=== PATIENT | male | born 1965 | race Caucasian/White ===

== ENCOUNTER 2021-04-15 11:19 | Inpatient (IN) ==
[2021-04-15 12:23] LABS: Basophils # (auto) 0.01 K/uL (0-0.2); Basophils % (auto) 0.1 %; Eosinophils # (auto) 0.04 K/uL (0-0.5); Eosinophils % (auto) 0.3 %; Hemoglobin 16.5 g/dL (14.0-18.0); Immature Granulocytes # (auto) 0.06 K/uL (0.00-0.02); Immature Granulocytes % (auto) 0.5 %; Lymphocytes # (auto) 1.34 K/uL (1.2-3.4); Lymphocytes % (auto) 11.5 %; Mean Corpuscular Hemoglobin 30.7 pg (25-34); Mean Corpuscular Hgb Conc 35.1 g/dL (32-36); Mean Corpuscular Volume 87.4 fL (80-100); Mean Platelet Volume 8.9 fL (7.4-10.4); Monocytes # (auto) 0.33 K/uL (0.11-0.59); Monocytes % (auto) 2.8 %; Neutrophils # (auto) 9.87 K/uL (1.4-6.5); Neutrophils % (auto) 84.8 %; Platelet Count 264 K/uL (130-400); RDW Coefficient of Variation 12.5 % (11.5-14.5); RDW Standard Deviation 39.9 fL (36.4-46.3); Red Blood Count 5.38 M/uL (4.7-6.1); White Blood Count 11.65 K/uL (4.8-10.8)
[2021-04-15 12:38] LABS: Appearance Urine Clear (Clear); Bilirubin Urine Negative (Negative); Blood Urine Negative (Negative); Color Urine Yellow; Glucose Urine UA Negative (Negative); Ketones Urine Negative (Negative); Leukocyte Esterase Urine Negative (Negative); Nitrite Urine Negative (Negative); Protein Urine Negative (Negative); Specific Gravity Urine 1.011 (1.000-1.030); Urobilinogen Urine Negative (Negative)
[2021-04-15 12:40] LABS: Alanine Aminotransferase 60 (12-78); Albumin Level 3.6 gm/dl (3.4-5.0); Aspartate Aminotransferase 29 U/L (15-37); BUN Creatinine Ratio 20.6 (10-20); Blood Urea Nitrogen 17 mg/dl (7-18); Calcium 9.1 mg/dl (8.5-10.1); Carbon Dioxide 26 mmol/L (21-32); Chloride 104 mmol/L (98-107); Est GFR (African American) 116.2 ml/min; Est GFR (Non-African American) 100.3 ml/min; Glucose 111 mg/dl (70-99); Potassium 4.1 mmol/L (3.5-5.1); Sodium 136 mmol/L (136-145)
[2021-04-15 12:42] LABS: Alkaline Phosphatase 62 U/L (45-117); Bilirubin,Total 0.9 mg/dl (0.2-1); Globulin 3.7 gm/dl (2.5-4.0); Total Protein 7.3 gm/dl (6.4-8.2)
[2021-04-15] MEDS ORDERED: HYDROmorphone INJ 1 MG/ML SYRINGE IV STA (12:51)
--- NOTE | 2021-04-15 12:55 | Emergency Department Note ---
Impression & Plan Lumbar radiculopathy, Bilateral leg weakness, Bilateral leg numbness ED Provider Note CHIEF COMPLAINT: Low back pain, leg weakness and numbness HISTORY OF PRESENT ILLNESS: This 55-year-old male patient presents to the emergency department via EMS complaining of pain in the low back which began about 2 weeks ago. The patient notes a history of chronic back problems since having a lumbar laminectomy several years ago, but he feels that he aggravated his back about 2 weeks ago after splitting some firewood. This is the patient's fourth visit to the emergency department for his back pain. He states over the past week he has been developing worsening pain with numbness and weakness in both legs, and for the past few days he has not been able to walk because of this. He has been seen by Dr. Griffin who did perform an MRI of his lumbar spine. The patient states that he was directed to come to the emergency department today by Dr. Griffin's office and Dr. Griffin will see him today. The patient is unable to get into a comfortable position. Patient notes the pain as severe, radiating down both legs from the lower back, and rates the pain 10/10. The patient did receive 8 mg of IV morphine from EMS in route, the patient states at this point this was about 2 hours ago. The patient has been taking oxycodone without relief of the pain. The patient denies any loss of control of their bowel or bladder functions, but does note that he has been somewhat constipated since taking narcotics. No nausea or vomiting or abdominal pain. No chest pain or shortness of breath. No dysuria or increased urinary frequency. REVIEW OF SYSTEMS: A complete 10 point review of systems was reviewed with the patient with pertinent positives and negatives as per history of present illness. All else were negative. ALLERGIES: No known allergies PMH: Anxiety, obesity, sleep apnea, chronic back pain, history of lumbar laminectomy, bilateral knee arthroscopy, tonsillectomy and adenoidectomy SOCIAL HISTORY: Lives at home, he denies tobacco use PHYSICAL EXAM: VITALS: Vitals are noted on the nurse's note and reviewed by myself. Vital signs stable. GENERAL: Pleasant and cooperative, in no acute distress, but appears significantly uncomfortable from pain and is mildly diaphoretic. SKIN: The skin was without rashes, erythema, edema, or bruising. Capillary refill less than 2 seconds. NECK: Supple without nuchal rigidity. No cervical spine tenderness. No paraspinous muscle tenderness. HEART: Regular rate and rhythm without murmurs gallops or rubs. LUNGS: Clear to auscultation bilaterally without wheezes, rales or rhonchi. ABDOMEN: Positive bowel sounds x 4. Normal tympanic percussion. Soft, nontender, without masses or organomegaly. Portillo sign negative. MUSCULOSKELETAL: No muscle atrophy, erythema, or edema noted of the back. There is diffuse tenderness over the lumbar spinous processes. There is diffuse tenderness over the paraspinous muscles of the lumbar region bilaterally. There is no tenderness over the thoracic spine or tenderness of the thoracic paraspinous muscles. There are no obvious muscle spasms present. The patient is slow to move around, and is constantly changing position from sitting and laying on his side and does not seem to be able to get comfortable. Positive straight leg raise test bilaterally NEURO: Patient was alert and oriented to person place and time. Decreased sensation to light touch in both lower extremities, more significant in the right compared to the left. Decreased strength in the right lower extremity on exam with 4/5 hip and knee flexion and 3/5 dorsiflexion. 5/5 strength in the left lower extremity. The patient is unable to stand due to bilateral leg weakness. Dorsalis pedis pulse 2+ bilaterally. ED COURSE AND MEDICAL DECISION MAKING: CC: Patient presenting with complaint of low back pain, leg weakness and numbness DIFFERENTIAL DIAGNOSIS: Includes, but not limited to musculoskeletal, disc herniation, fracture, metastatic disease, cord compression, discitis, sciatica, cauda equina, infection, among others. INTERPRETATION OF LABS: Mild leukocytosis, no anemia, normal platelets, no significant electrolyte abnormalities, normal renal function, normal liver enzymes. UA negative. SARS-CoV-2 RNA test negative. IMAGING: MRI of the lumbar spine without contrast performed on 04/06/2021 IMPRESSION: 1. Significant multilevel central canal and neural foraminal stenosis as de scribed due to a combination of spondylosis, ligamentous and facet hypertrophy. 2. Mild degenerative appearing anterolisthesis of L4 over L5. 3. L3-L5 laminectomy. MEDICATION RECONCILIATION: I attest that I have personally reviewed the patient's current medication list. INITIAL VITAL SIGNS REVIEW: I reviewed the patient's initial vital signs and interpret them as follows: T: Afebrile; BP: Normotensive; HR: Mildly tachycardic; RR: Within normal limits; Pulse Ox: Within normal limits on room air. MDM SUMMARY: Patient was evaluated at bedside, history and physical exam performed. Patient is alert and oriented, appears significantly uncomfortable from pain, unable to find a comfortable position. The patient is diaphoretic and complaining of 10/10 pain. Patient is noted to have decreased sensation throughout the lower extremities, right greater than left as well as some weakness in the right lower extremities right greater than left. He is unable to walk or even put full weight on his legs due to weakness. The patient received 8 mg IV morphine prior to arrival from EMS. He was given additional pain management with 1 mg IV Dilaudid. The patient did have a recent MRI of the lumbar spine which was ordered by Dr. Griffin, the results of this were requested and are as above. The patient does state that Dr. Griffin's office told him to come to the ER for evaluation. I did page for Dr. Griffin and waiting on his call. The patient had minimal relief after the Dilaudid, he was additionally given 30 mg IV Toradol. I did speak on the phone with Dr. Griffin, who feels that the patient warrants urgent surgery and plans to admit the patient for surgery tomorrow. The patient was reassessed again and continues to be significantly in pain. He states the Toradol did not help at all. I did discuss with the patient and his that he would be admitted and Dr. Griffin plans to do surgery tomorrow. The patient was agreeable to this. A COVID-19 test was ordered per protocol. Patient was given an additional dose of 0.5 mg IV Dilaudid pending orders from the inpatient team. The patient was alert and stable at the time of admission. The patient was discussed with Dr. Sinclair, ED attending, who agrees with my assessment, plan, and disposition. The chart was completed utilizing [employer] Speech voice recognition software. Grammatical errors, random word insertions, pronoun errors, and incomplete sentences are an occasional consequence of this system due to software limita tions, ambient noise, and hardware issues. Any formal questions or concerns about the content, text, or information contained within the body of this dictation should be directly addressed to the nurse practitioner for clarification. Past Med/Surg History Medical History Anxiety Chronic back pain with radiculopathy to LE, R>L Obesity (BMI 30-39.9) Sleep apnea CPAP Surgical History H/O colonoscopy History of adenoidectomy History of arthroscopy BILATERAL KNEES History of laminectomy LUMBAR History of tonsillectomy Family History Father Family history of diabetes mellitus Social History Smoking Status: Never smoker Second Hand Exposure: No; Hx Alcohol Use: No Hx Substance Use: No Preferred Language: Syriac Communication Ability: Effective [place] Required: No Beliefs That Will Affect Care: None Current Living Situation: Family Feels Safe at Home: Yes Assistive Devices: Glasses Allergies Allergies Allergy/AdvReac Type Severity Reaction Status Date / Time No Known Allergies Allergy Verified 04/15/21 16:52 Home Meds Home Medications Medication Instructions Recorded Confirmed acetaminophen 500 mg tablet 1,000 mg PO DAILY PRN 01/21/18 03/31/21 (Tylenol Extra Strength) fluticasone propionate 50 2 spray INTRANASAL DAILY PRN 01/21/18 03/31/21 mcg/actuation nasal spray,suspension (Flonase Allergy Relief) trazodone 50 mg tablet 50 mg PO HS 01/21/18 03/31/21 meclizine 25 mg tablet 25 mg PO DAILY PRN 02/23/18 03/31/21 cyclobenzaprine 10 mg tablet 10 mg PO BID 03/31/21 03/31/21 triamterene 37.5 1 cap PO DAILY 04/15/21 04/15/21 mg-hydrochlorothiazide 25 mg capsule Previous Rx's Medication Instructions Recorded methylprednisolone 4 mg tablets in See Rx Instructions .ROUTE 03/31/21 a dose pack .COMPLEX #21 ea oxycodone 5 mg tablet (Roxicodone) 5 mg PO Q8H PRN #21 tab 03/31/21 Results & Data (ED) Vital Signs Vital Signs - 24 hr 04/15/21 11:30 04/15/21 13:09 04/15/21 13:12 Temperature 36.8 C Temperature Source Skin Pulse Rate 100 H 108 H Pulse Rate [Apical] 104 H Pulse Rhythm [Apical] Pulse Strength [Apical] Respiratory Rate 18 24 24 Respiratory Effort / Characteristics Respiratory Depth Respiratory Pattern Blood Pressure 139/79 Blood Pressure [Right Arm] 129/87 Blood Pressure Mean 99 Blood Pressure Mean [Right Arm] 101 Blood Pressure Position [Right Arm] Pulse Oximetry 96 95 95 Oxygen Delivery Method Room Air Room Air Sepsis Recent Fever Within 48 Hours No Sepsis New/Unexplained Change in Mental Status No Sepsis Action Taken by Nursing No Action Required 04/15/21 15:26 Temperature Temperature Source Pulse Rate Pulse Rate [Apical] 118 H Pulse Rhythm [Apical] Regular Pulse Strength [Apical] Normal Respiratory Rate 18 Respiratory Effort / Characteristics Non-Labored Spontaneous Respiratory Depth Normal Respiratory Pattern Regular Blood Pressure Blood Pressure [Right Arm] 142/80 H Blood Pressure Mean Blood Pressure Mean [Right Arm] 100 Blood Pressure Position [Right Arm] Sitting Pulse Oximetry 95 Oxygen Delivery Method Room Air Sepsis Recent Fever Within 48 Hours Sepsis New/Unexplained Change in Mental Status Sepsis Action Taken by Nursing Laboratory Data Result diagrams: 04/15/21 12:13 04/15/21 12:13 Lab Results 04/15/21 04/15/21 04/15/21 Range/Units 12:13 12:13 12:20 WBC 11.65 H (4.8-10.8) K/uL RBC 5.38 (4.7-6.1) M/uL Hgb 16.5 (14.0-18.0) g/dL Hct 47.0 (42-52) % MCV 87.4 (80-100) fL MCH 30.7 (25-34) pg MCHC 35.1 (32-36) g/dL RDW Std Deviation 39.9 (36.4-46.3) fL RDW Coeff of Alex 12.5 (11.5-14.5) % Plt Count 264 (130-400) K/uL MPV 8.9 (7.4-10.4) fL Immature Gran % (Auto) 0.5 % Neut % (Auto) 84.8 % Lymph % (Auto) 11.5 % [place] % (Auto) 2.8 % Eos % (Auto) 0.3 % Baso % (Auto) 0.1 % Neut # (Auto) 9.87 H (1.4-6.5) K/uL Lymph # (Auto) 1.34 (1.2-3.4) K/uL [place] # (Auto) 0.33 (0.11-0.59) K/uL Eos # (Auto) 0.04 (0-0.5) K/uL Baso # (Auto) 0.01 (0-0.2) K/uL Immature Gran # (Auto) 0.06 H (0.00-0.02) K/uL Sodium 136 (136-145) mmol/L Potassium 4.1 (3.5-5.1) mmol/L Chloride 104 (98-107) mmol/L Carbon Dioxide 26 (21-32) mmol/L Anion Gap 6.0 (3-11) BUN 17 (7-18) mg/dl Creatinine 0.82 (0.6-1.4) mg/dl Est Cr Clr Drug Dosing Not Reportable Est GFR ( Amer) 116.2 ml/min Est GFR (Non-Af Amer) 100.3 ml/min BUN/Creatinine Ratio 20.6 H (10-20) Glucose 111 H (70-99) mg/dl Calcium 9.1 (8.5-10.1) mg/dl Total Bilirubin 0.9 (0.2-1) mg/dl AST 29 (15-37) U/L ALT 60 (12-78) Alkaline Phosphatase 62 (45-117) U/L Total Protein 7.3 (6.4-8.2) gm/dl Albumin 3.6 (3.4-5.0) gm/dl Globulin 3.7 (2.5-4.0) gm/dl Albumin/Globulin Ratio 1.0 (0.9-2) Urine Color Yellow Urine Appearance Clear (Clear) Urine pH 6.0 (4.5-7.5) Ur Specific [place] 1.011 (1.000-1.030) Urine Protein Negative (Negative) Urine Glucose (UA) Negative (Negative) Urine Ketones Negative (Negative) Urine Blood Negative (Negative) Urine Nitrite Negative (Negative) Urine Bilirubin Negative (Negative) Urine Urobilinogen Negative (Negative) Ur Leukocyte Esterase Negative (Negative) SARS-CoV-2, RNA, NAAT (NEGATIVE) 04/15/21 Range/Units 15:15 WBC (4.8-10.8) K/uL RBC (4.7-6.1) M/uL Hgb (14.0-18.0) g/dL Hct (42-52) % MCV (80-100) fL MCH (25-34) pg MCHC (32-36) g/dL RDW Std Deviation (36.4-46.3) fL RDW Coeff of Alex (11.5-14.5) % Plt Count (130-400) K/uL MPV (7.4-10.4) fL Immature Gran % (Auto) % Neut % (Auto) % Lymph % (Auto) % [place] % (Auto) % Eos % (Auto) % Baso % (Auto) % Neut # (Auto) (1.4-6.5) K/uL Lymph # (Auto) (1.2-3.4) K/uL [place] # (Auto) (0.11-0.59) K/uL Eos # (Auto) (0-0.5) K/uL Baso # (Auto) (0-0.2) K/uL Immature Gran # (Auto) (0.00-0.02) K/uL Sodium (136-145) mmol/L Potassium (3.5-5.1) mmol/L Chloride (98-107) mmol/L Carbon Dioxide (21-32) mmol/L Anion Gap (3-11) BUN (7-18) mg/dl Creatinine (0.6-1.4) mg/dl Est Cr Clr Drug Dosing Est GFR ( Amer) ml/min Est GFR (Non-Af Amer) ml/min BUN/Creatinine Ratio (10-20) Glucose (70-99) mg/dl Calcium (8.5-10.1) mg/dl Total Bilirubin (0.2-1) mg/dl AST (15-37) U/L ALT (12-78) Alkaline Phosphatase (45-117) U/L Total Protein (6.4-8.2) gm/dl Albumin (3.4-5.0) gm/dl Globulin (2.5-4.0) gm/dl Albumin/Globulin Ratio (0.9-2) Urine Color Urine Appearance (Clear) Urine pH (4.5-7.5) Ur Specific [place] (1.000-1.030) Urine Protein (Negative) Urine Glucose (UA) (Negative) Urine Ketones (Negative) Urine Blood (Negative) Urine Nitrite (Negative) Urine Bilirubin (Negative) Urine Urobilinogen (Negative) Ur Leukocyte Esterase (Negative) SARS-CoV-2, RNA, NAAT NEGATIVE (NEGATIVE) Administered Medications Discontinued Medications Hydromorphone HCl (Hydromorphone Inj 1 Mg/Ml Syringe) 1 mg IV NOW STA Stop: 04/15/21 12:52 Last Admin: 04/15/21 12:59 Dose: 1 mg Documented by: [id number] Hydromorphone HCl (Hydromorphone Inj 0.5 Mg/0.5 Ml Syr) 0.5 mg IV NOW STA Stop: 04/15/21 15:16 Last Admin: 04/15/21 15:21 Dose: 0.5 mg Documented by: [id number] Ketorolac Tromethamine (Ketorolac 30 Mg/Ml Vial) 30 mg IV NOW STA Stop: 04/15/21 13:21 Last Admin: 04/15/21 13:23 Dose: 30 mg Documented by: [id number] Discharge Plan Visit Data Chief Complaint: Back Injury/Pain Stated Complaint: chronic ED Provider: Herber Sinclair ED Midlevel Provider: Chantel Bella Discharge Problem: Lumbar radiculopathy, Bilateral leg weakness, Bilateral leg numbness Patient Disposition: Admitted As Inpatient Condition: Good Forms Stand Alone Forms: [facility], [facility] Emergency Department, Important Visit Information Prescriptions Prescriptions: No Action trazodone 50 mg Tablet 50 mg PO HS RF: 0 acetaminophen [Tylenol Extra Strength] 500 mg Tablet 1,000 mg PO DAILY PRN (Reason: Pain) RF: 0 fluticasone propionate [Flonase Allergy Relief] 50 mcg/actuation [place],S uspension 2 spray INTRANASAL DAILY PRN (Reason: Allergy Symptoms) RF: 0 meclizine 25 mg Tablet 25 mg PO DAILY PRN (Reason: Dizziness) RF: 0 cyclobenzaprine 10 mg tablet 10 mg PO BID RF: 0 oxycodone [Roxicodone] 5 mg tablet 5 mg PO Q8H PRN (Reason: pain) Qty: 21 RF: 0 methylprednisolone 4 mg tablets,dose pack See Rx Instructions .ROUTE .COMPLEX Qty: 21 RF: 0 triamterene-hydrochlorothiazid 37.5-25 mg capsule 1 cap PO DAILY RF: 0 Referrals Referrals: Oja,Octaviano, PA-C [Primary Care Provider] -
[2021-04-15] MEDS ORDERED: KETOROLAC 30 MG/ML VIAL IV STA (13:20)
[2021-04-15] MEDS ORDERED: HYDROmorphone INJ 0.5 MG/0.5 ML SYR IV STA (15:15)
[2021-04-15] MEDS ORDERED: MAGNESIUM HYDROXIDE SUSP 30 ML UDC PO PRN (18:56)
[2021-04-15] MEDS ORDERED: diphenhydrAMINE Capsule 25 MG CAP PO PRN (18:56)
[2021-04-15] MEDS ORDERED: METOCLOPRAMIDE HCL INJ 5 MG/ML 2 ML VIAL IV PRN (18:56)
[2021-04-15] MEDS ORDERED: LORazepam 0.5 MG/1 ML VIAL IV PRN (18:56)
[2021-04-15] MEDS ORDERED: ACETAMINOPHEN 500 MG TAB PO PRN (18:56)
[2021-04-15] MEDS ORDERED: ONDANSETRON INJ 2 MG/ML 2 ML VIAL IV PRN (18:56)
[2021-04-15] MEDS ORDERED: HYDROmorphone INJ 0.5 MG/0.5 ML SYR IV PRN (18:56)
[2021-04-15] MEDS ORDERED: ACETAMINOPHEN 1,000 MG/100 ML VIAL IV PRN (18:56)
[2021-04-15] MEDS ORDERED: ONDANSETRON 4 MG OD TAB PO PRN (18:56)
[2021-04-15] MEDS ORDERED: ALUMINUM/MAGNESIUM SUSP 30 ML UDC PO PRN (18:56)
[2021-04-15] MEDS ORDERED: PROMETHAZINE HCL 12.5 MG in SODIUM CHLORIDE 0.9% 50 ML IV PRN (18:56)
[2021-04-15] MEDS ORDERED: hydrOXYzine HCl 25 MG TAB PO PRN (18:56)
[2021-04-15] MEDS ORDERED: NALOXONE HCL 0.4 MG/1 ML VIAL/CARP IV PRN (18:56)
[2021-04-15] MEDS ORDERED: LORazepam 0.5 MG TAB PO PRN (18:56)
[2021-04-15] MEDS: HYDROmorphone INJ 1 MG/ML SYRINGE IV PRN ×2 (19:59→23:29)
[2021-04-15] MEDS: LACTATED RINGER'S 1,000 ML IV SCH (20:03)
[2021-04-15] MEDS: oxyCODONE HCL IR 5 MG TAB (IMMEDIATE RELEASE) PO PRN (21:55)
[2021-04-15] MEDS: traZODone HCL 50 MG TAB PO SCH (21:56)
[2021-04-16] MEDS ORDERED: GLUCOSE 10 TABS/TUBE PO PRN (00:15)
[2021-04-16] MEDS ORDERED: CARBOHYDRATES FOR HYPOGLYCEMIA PO PRN (00:15)
[2021-04-16] MEDS ORDERED: DEXTROSE 50% 50 ML SYRINGE IV PRN (00:15)
[2021-04-16] MEDS ORDERED: GLUCOSE 40% GEL 15 GM TUBE PO PRN (00:15)
[2021-04-16] MEDS ORDERED: GLUCAGON FOR INJ 1 MG VIAL IM PRN (00:15)
[2021-04-16] MEDS: INSULIN ASPART PER UNIT SC SCH ×5 (01:29→21:25)
--- NOTE | 2021-04-16 02:21 | History and Physical Report ---
DATE OF ADMISSION: 04/15/2021. CHIEF COMPLAINT: Back pain. HISTORY OF PRESENT ILLNESS: This is a 55-year-old male with past medical history significant for prediabetes, obstructive sleep apnea, mild persistent asthma, obesity, history of rectal bleeding, history of adjustment disorder, history of lumbar laminectomy was having back pain for some time, but the last 2 weeks it has become more severe, having ambulatory dysfunction. Outpatient MRI was done and it was decided for procedure, so he was admitted. We are consulted for medical management. Currently, resting comfortably. Has complaints of back pain. Denies any other complaints. No headache, no blurred visions, no earache, no runny nose, no sore throat, no cough, no chest pain, no shortness of breath, no nausea, no abdominal pain. Somewhat constipated because of pain medications. Normal bladder movements. ALLERGIES: No known drug allergies. PAST MEDICAL HISTORY: As mentioned above. PAST SURGICAL HISTORY: Colonoscopy, right knee repair, left knee repair, back surgeries, revision of palate. MEDICATIONS: The patient is on Tylenol Extra Strength 1000 mg p.o. daily p.r.n., cyclobenzaprine 10 mg p.o. b.i.d., Flonase 2 sprays intranasal daily p.r.n., meclizine 25 mg p.o. daily p.r.n., oxycodone 5 mg p.o. 8 hours p.r.n., trazodone 50 mg p.o. at bedtime, triamterene/hydrochlorothiazide 1 capsule p.o. daily. FAMILY HISTORY: Significant for father had heart disorder, hypertension, thyroid disorder; mother has fibromyalgia, Alzheimer disease; son has allergies. SOCIAL HISTORY: , no smoking, no alcohol, no drug use. REVIEW OF SYSTEMS: As per HPI. Rest of the review of systems is negative. PHYSICAL EXAMINATION: GENERAL: The patient is obese, not in acute distress. VITAL SIGNS: Temperature 36.6, pulse 76, respiratory rate 18, blood pressure 138/76, oxygen 92% on room air. HEENT: Atraumatic. No facial droop. Speech is clear. NECK: No JVD. No neck masses. CARDIOVASCULAR: S1 and S2 heard. Regular rate and rhythm. No murmur, no gallop. RESPIRATORY SYSTEM: Normal AP diameter. No accessory muscle use. No wheezing, no crackles. ABDOMEN: Soft, bowel sounds present, nontender, no distention. CENTRAL NERVOUS SYSTEM: Cranial nerves II through XII are grossly intact. EXTREMITIES: Moves extremities. No edema, no erythema seen. LABORATORY DATA: WBC 11.6, hemoglobin 16.5, hematocrit 47, platelets 263. Sodium 136, potassium 4.1, chloride 104, bicarbonate 26, BUN 17, creatinine 0.8, serum glucose 111, calcium 9.1, total bilirubin 0.9, AST 29, ALT 60, alkaline phosphatase 62. Urinalysis negative. SARS-CoV-2 negative. ASSESSMENT AND PLAN: This is a 55-year-old male who was admitted for severe back pain, possible procedure in the a.m. 1. Severe back pain: Management as per orthopedics. Pain control. If procedure required, the patient will be at acceptable risk to proceed with procedure if pre op chest x-ray and EKG are ok. 2. Obstructive sleep apnea: On CPAP at bedtime. 3. Prediabetes: Will monitor the blood sugars. 4. Deep venous thrombosis prophylaxis and disposition as per orthopedics. Job ID: [id number] [facility]
[2021-04-16] MEDS: HYDROmorphone INJ 1 MG/ML SYRINGE IV PRN ×2 (03:22→06:22)
[2021-04-16] MEDS: oxyCODONE HCL IR 5 MG TAB (IMMEDIATE RELEASE) PO PRN (05:41)
[2021-04-16] MEDS ORDERED: ceFAZolin 2000MG 2,000 MG/15 ML SYR IV SCH (06:00)
[2021-04-16 06:50] LABS: Basophils # (auto) 0.01 K/uL (0-0.2); Basophils % (auto) 0.1 %; Eosinophils # (auto) 0.27 K/uL (0-0.5); Eosinophils % (auto) 2.2 %; Hematocrit (blood only) 47.8 % (42-52); Hemoglobin 16.6 g/dL (14.0-18.0); Immature Granulocytes # (auto) 0.09 K/uL (0.00-0.02); Immature Granulocytes % (auto) 0.7 %; Lymphocytes # (auto) 2.32 K/uL (1.2-3.4); Lymphocytes % (auto) 18.9 %; Mean Corpuscular Hemoglobin 30.6 pg (25-34); Mean Corpuscular Hgb Conc 34.7 g/dL (32-36); Mean Platelet Volume 8.9 fL (7.4-10.4); Monocytes # (auto) 1.74 K/uL (0.11-0.59); Monocytes % (auto) 14.2 %; Neutrophils # (auto) 7.86 K/uL (1.4-6.5); Neutrophils % (auto) 63.9 %; Platelet Count 263 K/uL (130-400); RDW Coefficient of Variation 12.6 % (11.5-14.5); RDW Standard Deviation 40.3 fL (36.4-46.3); Red Blood Count 5.43 M/uL (4.7-6.1); White Blood Count 12.29 K/uL (4.8-10.8)
[2021-04-16 07:28] LABS: BUN Creatinine Ratio 24.6 (10-20); Calcium 9.3 mg/dl (8.5-10.1); Creatinine Clr Calc Pharmacy 134.8 ml/min; Est GFR (African American) 113.4 ml/min; Est GFR (Non-African American) 97.8 ml/min; Magnesium 2.4 mg/dl (1.8-2.4); Potassium 3.8 mmol/L (3.5-5.1)
--- NOTE | 2021-04-16 07:56 | Anesthesiology Consultation ---
Date of Service April 16, 2021 I spoke with the nurse on the floor about obtaining an updated EKG on the patient. She stated that they attempted to obtain an EKG multiple times but that the patient shakes too much for an acceptable printout. Assessment & Plan (1) Encounter for pre-operative examination: Chart Review Chart Review: Acceptable Risk for Surgery and Patient NOT seen in Pre Admission Testing Consults Requested none History Surgery Operation Date: 04/16/21 09:40 Proposed Procedures p L2-S1 Lumbar Decompression Fusion - Juan Griffin DO Height/Weight Height: 6 ft 1 in Weight: 125.7 kg Allergies Allergy/AdvReac Type Severity Reaction Status Date / Time No Known Allergies Allergy Verified 04/15/21 16:52 Medications Home Medications Medication Instructions Recorded Confirmed Last Taken acetaminophen 500 mg tablet 1,000 mg PO DAILY PRN 01/21/18 04/15/21 02/20/18 (Tylenol Extra Strength) fluticasone propionate 50 2 spray INTRANASAL DAILY PRN 01/21/18 04/15/21 3 Weeks Ago mcg/actuation nasal ~02/02/18 spray,suspension (Flonase Allergy Relief) trazodone 50 mg tablet 50 mg PO HS 01/21/18 04/15/21 02/21/18 21:00 meclizine 25 mg tablet 25 mg PO DAILY PRN 02/23/18 04/15/21 3 Weeks Ago ~02/02/18 cyclobenzaprine 10 mg tablet 10 mg PO BID 03/31/21 04/15/21 04/15/21 07:00 methylprednisolone 4 mg tablets in See Rx Instructions .ROUTE 03/31/21 04/15/21 04/15/21 07:00 a dose pack .COMPLEX #21 ea oxycodone 5 mg tablet (Roxicodone) 5 mg PO Q8H PRN #21 tab 03/31/21 04/15/21 08:00 triamterene 37.5 1 cap PO DAILY 04/15/21 04/15/21 Unknown mg-hydrochlorothiazide 25 mg capsule Active Medications Generic Name Dose Route Start Last Admin Trade Name Freq PRN Reason Stop Dose Admin Hydromorphone HCl 1 mg 04/15/21 18:56 04/16/21 06:22 Hydromorphone Inj 1 Mg/Ml Syringe IV 04/29/21 18:55 1 mg Q3H PRN Administration severe pain (scale 7-10) Lactated Ringer's 1,000 mls @ 75 mls/hr 04/15/21 18:56 04/15/21 20:03 Lr IV 05/15/21 18:55 75 mls/hr .[id number] MICHELLE Administration Lorazepam 0.5 mg in 1 mls @ 1 mls/min 04/15/21 18:56 04/16/21 02:10 Ativan IV 05/15/21 18:55 1 mls/min Q8H PRN Administration Sedation/Anxiety Insulin Aspart 0 units 04/16/21 00:15 04/16/21 05:46 Insulin Aspart Per Unit SC 05/16/21 00:14 Not Given Q6 MICHELLE Oxycodone HCl 5 - 10 mg 04/15/21 18:56 04/16/21 05:41 Oxycodone Hcl Ir 5 Mg Tab (Immediate Release) PO 04/29/21 18:55 10 mg Q4H PRN Administration mod to severe pain Trazodone HCl 50 mg 04/15/21 21:00 04/15/21 21:56 Trazodone Hcl 50 Mg Tab PO 05/15/21 20:59 50 mg HS MICHELLE Administration NPO Date Last Intake of Fluids: 04/15/21 Time Last Intake of Fluids: 23:59 Date Last Intake of Solids: 04/15/21 Time Last Intake of Solids: 23:59 Past Medical History Medical History Anxiety Chronic back pain with radiculopathy to LE, R>L Obesity (BMI 30-39.9) Sleep apnea CPAP Past Family History Family History Father Family history of diabetes mellitus Past Surgical History Surgical History H/O cervical spine surgery glidescope #4 used H/O colonoscopy History of adenoidectomy History of arthroscopy BILATERAL KNEES History of laminectomy LUMBAR History of tonsillectomy Social History Smoking Status: Never smoker Hx Alcohol Use: No Hx Substance Use: No substance use type: does not use Physical Exam Vital Signs Last Vital Signs Temp 36.5 C 04/16/21 07:00 Pulse 90 12/15/21 07:00 Resp 18 04/16/21 07:00 BP 154/94 H 04/16/21 07:00 Pulse Ox 96 04/16/21 07:00 Testing Laboratory Results 04/16/21 06:33 04/16/21 06:33 Urine Color Yellow 04/15/21 12:20 Urine Appearance Clear (Clear) 04/15/21 12:20 Urine pH 6.0 (4.5-7.5) 04/15/21 12:20 Ur Specific [place] 1.011 (1.000-1.030) 04/15/21 12:20 Urine Protein Negative (Negative) 04/15/21 12:20 Urine Glucose (UA) Negative (Negative) 04/15/21 12:20 Urine Ketones Negative (Negative) 04/15/21 12:20 Urine Nitrite Negative (Negative) 04/15/21 12:20 Ur Leukocyte Esterase Negative (Negative) 04/15/21 12:20 04/16/21 04/16/21 05:41 01:14 POC Glucose 90 99
--- NOTE | 2021-04-16 07:59 | History & Physical Report ---
Date of Service April 16, 2021 Assessment & Plan (1) Neurogenic claudication due to lumbar spinal stenosis: Plan: Assessment severe lumbar spinal stenosis with herniated was pulposis spondylolisthesis and advanced neurologic deficit. Plan MRI lumbar spine performed at [facility] dated April 06, 2021 demonstrates evidence of severe neuroforaminal disease with evidence of foraminal disc herniation L2-L3 L3-L4 on the left. There is anterior listhesis L4-5. There is evidence of lumbar decompression centrally L3-L4 L4-L5 L5-S1. There is severe advanced subarticular disease. In light of the patient's steady decline obvious neuro deficit and inability ambulate him recommending emergent multilevel revision decompression and fusion L2-L3 L3-L4 L4-L5 L5-S1. Admission and Anticipated Discharge Date Admission Date: April 15, 2021 History of Present Illness Chief Complaint: Back bilateral leg pain and weakness Primary Care Provider: Octaviano Malone PA-C This is a 55-year-old male who presents with marked clinical status over the past several weeks. This is his third emergency room visit. He is noted a steady decline in ability to ambulate with pain rating in the bilateral buttocks posterior anterior thighs below his knees. He is unable to stand for any length of time or ambulate. He does have a history of previous multilevel lumbar decompression without fusion. Allergies Allergy/AdvReac Type Severity Reaction Status Date / Time No Known Allergies Allergy Verified 04/15/21 16:52 Home Medications Medication Instructions Recorded Confirmed Type acetaminophen 500 mg tablet 1,000 mg PO DAILY PRN 01/21/18 04/15/21 History (Tylenol Extra Strength) fluticasone propionate 50 2 spray INTRANASAL DAILY PRN 01/21/18 04/15/21 History mcg/actuation nasal spray,suspension (Flonase Allergy Relief) trazodone 50 mg tablet 50 mg PO HS 01/21/18 04/15/21 History meclizine 25 mg tablet 25 mg PO DAILY PRN 02/23/18 04/15/21 History cyclobenzaprine 10 mg tablet 10 mg PO BID 03/31/21 04/15/21 History methylprednisolone 4 mg tablets in See Rx Instructions .ROUTE 03/31/21 04/15/21 Rx a dose pack .COMPLEX #21 ea oxycodone 5 mg tablet (Roxicodone) 5 mg PO Q8H PRN #21 tab 03/31/21 04/15/21 Rx triamterene 37.5 1 cap PO DAILY 04/15/21 04/15/21 History mg-hydrochlorothiazide 25 mg capsule Past Med/Surg History Medical History Anxiety Chronic back pain with radiculopathy to LE, R>L Obesity (BMI 30-39.9) Sleep apnea CPAP Surgical History (Updated 04/16/21 @ 07:55 by Liu Mayer MD) H/O cervical spine surgery glidescope #4 used H/O colonoscopy History of adenoidectomy History of arthroscopy BILATERAL KNEES History of laminectomy LUMBAR History of tonsillectomy Family History Father Family history of diabetes mellitus Social History Smoking Status: Never smoker Second Hand Exposure: No; Hx Alcohol Use: No Hx Substance Use: No Preferred Language: Greek Communication Ability: Effective Rn Otolaryngology Required: No Beliefs That Will Affect Care: None Current Living Situation: Family Other Information That Helps Us Care for You: No Feels Safe at Home: Yes Safety Concerns: Feels Safe At This Time Assistive Devices: Cane, Glasses and Walker Physical Exam Physical Exam: Patient is in obvious distress. He exhibits 3/5 quadriceps on the left 4 5 on the right. Dorsiflexion is a 4/5 bilaterally. Sensory is diminished. Deep tendon reflexes absent. There is severe tension signs with straight leg raising. Results & Data ([facility]) Vital Signs (Past 12 Hours) Vital Signs Temp Pulse Resp BP Pulse Ox Pulse Ox 04/16/21 07:00 36.5 C 90 18 154/94 H 96 04/15/21 23:18 36.6 C 76 18 138/76 92 04/15/21 20:40 36.8 C 87 18 159/81 H 93 04/15/21 20:35 36.8 C 87 16 159/81 H 93 93 Code Status & VTE Plan VTE Prophylaxis Plan VTE Prophylaxis will be ordered: Yes
[2021-04-16] MEDS ORDERED: MIDAZOLAM HCL 1 MG/ML 2ML VIAL ONE (08:00)
[2021-04-16] MEDS ORDERED: fentaNYL citrate 100 MCG/2 ML VIAL ONE (08:00)
--- NOTE | 2021-04-16 08:18 | XRay Report ---
SINGLE VIEW CHEST CLINICAL HISTORY: Preoperative examination FINDINGS: An AP, portable, upright chest radiograph is compared to study dated 01/21/2018. The patient 's head partially obscures the apices. The cardiomediastinal silhouette is unremarkable. There is mil d bibasilar atelectasis. The lungs and pleural spaces are otherwise clear. No pneumothorax is seen. T he bony thorax is grossly intact. Degenerative change is noted in the shoulders. IMPRESSION: No active disease in the chest. ACT 112: Negative or not required by law. Electronically signed by: Julian Elias M.D. 04/16/2021 8:17 AM
[2021-04-16] MEDS ORDERED: BUPIVACAINE 0.5 % 5 MG/1 ML MPF 30ML VIAL ONE (08:22)
[2021-04-16] MEDS ORDERED: EPINEPHrine INJ 1 MG/ML AMP ONE (08:22)
[2021-04-16 08:29] LABS: Estimated Average Glucose 120 mg/dl; Hemoglobin A1C 5.8 % (4.5-5.6)
[2021-04-16] MEDS ORDERED: ROCURONIUM BROMIDE 10 MG/ML 5 ML VIAL IV ONE (08:41)
[2021-04-16] MEDS ORDERED: DEXAMETHASONE SOD INJ 4 MG/ML VIAL ONE ×2 (08:41→12:25)
[2021-04-16] MEDS ORDERED: LIDOCAINE 2% 2 ML VIAL/AMP(20MG/ML) INFIL ONE (08:41)
[2021-04-16] MEDS ORDERED: PROPOFOL IV EMULSION 10 MG/ML 20 ML VIAL IV ONE (08:41)
[2021-04-16] MEDS ORDERED: GLYCOPYRROLATE 0.2 MG/ML VIAL ONE (08:41)
[2021-04-16] MEDS ORDERED: ONDANSETRON INJ 2 MG/ML 2 ML VIAL ONE (08:41)
[2021-04-16] MEDS ORDERED: NEOSTIGMINE METHYLSULFATE 1 MG/ML 10ML VIAL ONE (08:41)
[2021-04-16] MEDS ORDERED: HYDROmorphone INJ 2 MG/ML SYR/VIAL ONE ×2 (08:42→12:14)
[2021-04-16] MEDS ORDERED: SODIUM CHLORIDE 0.9% 250 ML IV PRN (09:41)
[2021-04-16] MEDS ORDERED: KETAMINE 50 MG/5 ML SYRINGE ONE (09:49)
[2021-04-16] MEDS ORDERED: FLOSEAL HEMOSTATIC MATRIX 10ML TOP ONE (10:26)
[2021-04-16 12:56] LABS: Hematocrit (blood only) 40.3 % (42-52)
[2021-04-16 13:21] LABS: iSTAT Creatinine 0.7 mg/dl (0.6-1.3); iSTAT Hemoglobin 12.6 g/dl (14.0-18.0); iSTAT Ionized Calcium 1.16 mmol/l (1.12-1.32); iSTAT Potassium 3.7 mmol/L (3.3-5.0)
[2021-04-16] MEDS ORDERED: FAMOTIDINE/PF 20 MG/2 ML VIAL IV ONE (13:26)
[2021-04-16] MEDS ORDERED: SUGAMMADEX SODIUM 200 MG/2 ML VIAL IV ONE (13:27)
[2021-04-16] MEDS ORDERED: ceFAZolin 2000MG 2,000 MG/15 ML SYR IV ONE (13:37)
[2021-04-16] MEDS ORDERED: METOCLOPRAMIDE HCL INJ 5 MG/ML 2 ML VIAL ONE (13:39)
[2021-04-16] MEDS ORDERED: KETOROLAC 30 MG/ML VIAL ONE (13:44)
--- NOTE | 2021-04-16 13:57 | Operative Report ---
Post Operative Report Pre & Post Diagnosis Operation Date: 04/16/21 09:40 Pre-Op Diagnosis: Neurogenic Claudication due to Lumbar Spinal Stenosis L2-S1; Severe Neuroforaminal Disease with Evidence of Foraminal Disc Herniation L2-L3, L3-L4 Post-Op Diagnosis: Neurogenic Claudication due to Lumbar Spinal Stenosis L2-S1; Severe Neuroforaminal Disease with Evidence of Foraminal Disc Herniation L2-L3, L3-L4 I identified the patient and participated in the time-out.: Yes Procedure Operation Date: 04/16/21 09:40 Actual Procedures #1 revision lumbar decompression with bilateral medial facetectomies and foraminotomies L1-L2, L2-L3, L3-L4, L4-5 L5-S1. #2 posterior spinal fusion L2- L3, L3-L4, L4-5 and L5-S1. #3 placement posterior segmental instrumentation L2- S1. #4 interbody fusion L2-L3, L3-L4, L4-5 and L5-S1. #5 placement of titanium globus interbody cages 12 x 26 mm at L2-L3, 12 x 26 mm at L3-L4, 15 x 26 mm at L4-L5 and 14 x 26 mm at L5-S1. #6 placement locally harvested morselized autograft in the posterior gutters per #7 placement infuse collagen sponge and master graft in the posterior lateral gutters and I factor in the interbody space. Surgeon Juan Griffin, DO Nuclear Equipment Operator Geneva Rowell Estimated Blood Loss 1,600 Findings See Below The patient is 6 foot 1 inches tall weighing over 125 kg a BMI in excess of 36. Patient's body habitus did contribute to significant technical difficulty requiring her deepest retractors longus instruments in order to perform her procedure. This had at least 50% increased operative time. Specimens None Complications None Indications This is a 55-year-old male who presents with significant neurologic deterioration and evidence of severe spinal stenosis and herniated pulposis throughout the lumbar spine. He is here for emergent decompression fusion. Description of Procedure Patient was met with identified informed consent obtained. Patient was then taken to the operative suite underwent ablation placed in a prone position the Jasvir table on top Omi frame. Operative promises well-padded eyes inspected to ensure no external pressure placed upon the. This point the lumbar spine was prepped and draped in normal sterile fashion. Sharp dissection with the assistance of Bovie cautery was performed down to and exposing the remaining lamina and transverse processes of L2 L3-L4-L5 and the sacral ala bilaterally. I then performed revision decompression including bilateral medial facetectomies and prominence from caudal cephalad fashion beginning at L5 L4 L3 and partial laminectomy of L1. Identified massive amounts of disc material particular at the L2-L3 level that had migrated dorsal to the thecal sac. There was severe neural compression at all levels. After decompression pedicle screws were placed in L2 L3-L4-L5 and S1 levels bilaterally with assistance of fluoroscopy and appropriate sized leona placed. By way of a transforaminal approach on the left complete discectomy of L5-S1 was performed endplates curetted to subcorti kenyatta bone and a 14 x 26 mm titanium cage filled with I factor tapped in position. Then proceeded L4-L5 and again by way of a transforaminal approach on the left a complete t discectomy performed endplates curetted to subcortical bleeding bone and a 15 x 26 mm titanium cage filled with I factor tapped in position. I have provided proceeded to the L3-L4 level again by way of a transforaminal approach left complete discectomy performed endplates curetted to subcortical being bone and a 12 x 26 mm titanium cage filled with I factor tapped in position. Lastly proceeded to L2-L3 and again by way of a transforaminal approach and left complete discectomy performed endplates curetted to subcortical being bone and a 12 x 26 mm titanium cage filled with I factor tapped position. The rods then compressed locked into final position bilaterally. Transverse processes of L to L3-L4-L5 and the sacral ala burred to subcortical bleeding bone. Infuse collagen sponge mass graft local autograft was placed in the posterior gutters. 15 round BARRY drain inserted. The incision was then closed with 1 Vicryl to fascia 2-0 Vicryl subcutaneously and 4 Monocryl for final skin closure. Steri-Strip sterile dressings placed. Patient will continue PACU stable condition. Please note spinal cord monitoring was utilized at the procedure no changes noted. Lastly Geneva Rowell was present throughout the entire procedure involved the patient positioning complex portions of the surgery and final skin closure. I attest to the content of the Intraoperative Record and any orders documented therein. Any exceptions are noted below.
--- NOTE | 2021-04-16 14:16 | Fluoroscopy Report ---
INTRAOPERATIVE RADIOGRAPHS CLINICAL HISTORY: Lumbar spinal fusion surgery. Fluoroscopy time: 42 seconds. FINDINGS: 3 spot fluoroscopic views of the lumbar spine are presented. There has been discectomy at L 2-L3, L3-L4, L4-L5, and L5-S1 with laminectomy and posterior fusion from L2-S1. Interpedicular screws are present at all levels. The orthopedic hardware appears intact. IMPRESSION: Intraoperative lumbar spinal fusion images as above. Electronically signed by: Julian Elias M.D. 04/16/2021 2:15 PM
[2021-04-16] MEDS ORDERED: LABETALOL HCL IV 5 MG/ML 20ML IV PRN (14:46)
[2021-04-16] MEDS ORDERED: ONDANSETRON INJ 2 MG/ML 2 ML VIAL IV PRN ×2 (14:46→15:24)
[2021-04-16] MEDS ORDERED: PROMETHAZINE HCL 12.5 MG in SODIUM CHLORIDE 0.9% 50 ML IV PRN ×2 (14:46→15:24)
[2021-04-16] MEDS ORDERED: ePHEDrine sulfate 50 MG/ML AMP IV PRN (14:46)
[2021-04-16] MEDS ORDERED: FLUMAZENIL 0.1 MG/1 ML 10 ML VIAL IV PRN (14:46)
[2021-04-16] MEDS ORDERED: ATROPINE SULFATE 0.1 MG/ML 10ML SYR IV PRN (14:46)
[2021-04-16] MEDS ORDERED: NALOXONE HCL 0.4 MG/1 ML VIAL/CARP IV PRN ×2 (14:46→15:24)
[2021-04-16] MEDS ORDERED: HYDROmorphone INJ 0.5 MG/0.5 ML SYR IV PRN (15:00)
--- NOTE | 2021-04-16 15:03 | Anesthesiology Progress Note ---
Date of Service April 16, 2021 Anesthesia Post Procedure Vital Signs Vital Signs: Temp Pulse Pulse Resp BP Pulse Ox Pulse Ox 04/16/21 14:50 36.9 C 101 H 16 138/84 97 04/16/21 14:40 100 H 12 147/85 H 97 04/16/21 14:30 100 H 13 142/79 H 100 04/16/21 14:20 98 H 15 131/80 100 04/16/21 14:13 36.6 C 96 H 16 125/76 100 04/16/21 08:36 36.6 C 103 H 22 130/88 94 04/16/21 07:00 36.5 C 90 18 154/94 H 96 04/15/21 23:18 36.6 C 76 18 138/76 92 04/15/21 20:40 36.8 C 87 18 159/81 H 93 04/15/21 20:35 36.8 C 87 16 159/81 H 93 93 04/15/21 19:00 91 H 15 131/72 96 04/15/21 18:27 81 18 145/82 H 95 04/15/21 15:26 118 H 18 142/80 H 95 Pain Intensity Bilateral Hip: Pain Intensity: 0 Bilateral Leg: Pain Intensity: 0 Transfer of Care Handoff Completed per policy Notes Mental Status: alert / awake / arousable Patient Amnestic to Procedure: Yes Nausea / Vomiting: adequately controlled Pain: adequately controlled Airway Patency, RR, SpO2: stable & adequate BP & HR: stable & adequate Hydration State: stable & adequate Anesthetic Complications: no major complications apparent
[2021-04-16] MEDS ORDERED: ACETAMINOPHEN 1,000 MG/100 ML VIAL IV PRN (15:24)
[2021-04-16] MEDS ORDERED: ACETAMINOPHEN 500 MG TAB PO PRN (15:24)
[2021-04-16] MEDS ORDERED: ALUMINUM/MAGNESIUM SUSP 30 ML UDC PO PRN (15:24)
[2021-04-16] MEDS ORDERED: hydrOXYzine HCl 25 MG TAB PO PRN (15:24)
[2021-04-16] MEDS ORDERED: FAMOTIDINE 20 MG TAB PO PRN (15:24)
[2021-04-16] MEDS ORDERED: LORazepam 0.5 MG TAB PO PRN (15:24)
[2021-04-16] MEDS ORDERED: METOCLOPRAMIDE HCL INJ 5 MG/ML 2 ML VIAL IV PRN (15:24)
[2021-04-16] MEDS ORDERED: bisacodyL 10 MG SUPP PR PRN (15:24)
[2021-04-16] MEDS ORDERED: SOD PHOSPHATE/SOD BIPHOSPHATE ENEMA 132 ML BTL PR PRN (15:24)
[2021-04-16] MEDS ORDERED: HYDROmorphone INJ 1 MG/ML SYRINGE IV PRN (15:24)
[2021-04-16] MEDS ORDERED: LORazepam 0.5 MG/1 ML VIAL IV PRN (15:24)
[2021-04-16] MEDS ORDERED: oxyCODONE HCL IR 5 MG TAB (IMMEDIATE RELEASE) PO PRN (15:24)
[2021-04-16] MEDS ORDERED: DO NOT ADMINISTER FLU VACCINE PRN (15:24)
[2021-04-16] MEDS ORDERED: PHARMACY GLYCEMIC MGMT CONSULT PRN (15:24)
[2021-04-16] MEDS ORDERED: MAGNESIUM HYDROXIDE SUSP 30 ML UDC PO PRN (15:24)
[2021-04-16] MEDS ORDERED: DO NOT ADMINISTER PNEUMOCOCCAL VACCINE PRN (15:24)
[2021-04-16] MEDS: LACTATED RINGER'S 1,000 ML IV SCH (15:36)
[2021-04-16] MEDS: HYDROmorphone INJ 0.5 MG/0.5 ML SYR IV PRN (16:02)
[2021-04-16] MEDS: SODIUM CHLORIDE 0.9% 1000ML 1,000 ML IV SCH ×2 (16:10→21:41)
--- NOTE | 2021-04-16 16:24 | Hospitalist Progress Note ---
Date of Service April 16, 2021 Assessment & Plan (1) Neurogenic claudication due to lumbar spinal stenosis: Plan: - POD#0 multilevel revision decompression and fusion L2-L3, L3-L4, L4-L5, L5-S1 - activity and wound care orders as per ortho - pain control with bowel regimen - PT/OT - monitor H/H for acute blood loss anemia and transfuse blood products PRN - EBL 1600 cc (2) HTN (hypertension): Plan: -BP currently controlled -triamterene/HCTZ currently on hold, resume tomorrow pending a.m. labs (3) Sleep apnea: Plan: -CPAP as per home settings (4) Prediabetes: Plan: -Hgb A1c 5.8 -NovoLog per protocol while hospitalized (5) DVT prophylaxis: Plan: -TEDs/SCDs as per spine Ortho Thank you for this consultation. We will follow the patient with you during their hospital stay. You [facility] via the [facility] in [place] Text. Admission and Anticipated Discharge Date Admission Date: April 15, 2021 Supervising Physician Co-Signing Physician Notes 55-year-old gentleman admitted for elective surgery for neurogenic claudication due to lumbar spinal stenosis, status post surgery at bedside exam. EBL 1600 cc during surgery. Continue to monitor hemoglobin daily. Upon examination, clean dressing over the back with BARRY drain in situ with serosanguineous collection. My other examination finding reflects as above. I have seen and examined the patient and have discussed the case with the provider above. I agree with the assessment and plan as stated. Subjective Patient seen examined. Follow-up for medical management s/p back surgery. Patient seen postoperatively. Reports pain is well controlled. Has some numbness and tingling to both feet which was present prior to surgery. Denies chest pain shortness of breath. No abdominal pain or nausea. Norman catheter in place draining yellow urine. Review of Systems Review of Systems: ROS per HPI, all other systems reviewed and negative Physical Exam Constitutional: WD/WN, vitals as above no acute distress Respiratory: normal respiratory effort, lungs clear to auscultation Cardiovascular: Rate/Rhythm: regular rate and regular rhythm Vessels: normal peripheral pulses Extremities: no edema Gastrointestinal (Abdomen): Percussion/Palpation: abdomen soft; abdomen nontender Musculoskeletal: S/p back surgery, drain in place draining bloody drainage, pedal pushes and pull strong bilaterally Skin: no rashes, warm and dry Neurologic: no focal motor deficits Psychiatric: A+Ox3, euthymic affect Results & Data Results & Data ([facility]) Vital Signs (Past 12 Hours) Vital Signs Temp Pulse Pulse Resp BP Pulse Ox 04/16/21 15:54 37.1 C 108 H 14 135/61 93 04/16/21 15:24 37.1 C 107 H 16 146/79 H 95 04/16/21 15:10 36.9 C 113 H 13 137/70 94 04/16/21 15:00 36.9 C 112 H 17 131/82 96 04/16/21 14:50 36.9 C 101 H 16 138/84 97 04/16/21 14:40 100 H 12 147/85 H 97 04/16/21 14:30 100 H 13 142/79 H 100 04/16/21 14:20 98 H 15 131/80 100 04/16/21 14:13 36.6 C 96 H 16 125/76 100 04/16/21 08:36 36.6 C 103 H 22 130/88 94 04/16/21 07:00 36.5 C 90 18 154/94 H 96 Laboratory Results Short CBC 04/16/21 04/16/21 Range/Units 06:33 12:48 WBC 12.29 H (4.8-10.8) K/uL Hgb 16.6 14.0 (14.0-18.0) g/dL Hct 47.8 40.3 L (42-52) % Plt Count 263 (130-400) K/uL BMP 04/16/21 06:33 Sodium 138 Potassium 3.8 Chloride 103 Carbon Dioxide 28 BUN 21 H Creatinine 0.87 Glucose 89 Calcium 9.3
[2021-04-16] MEDS: KETOROLAC 30 MG/ML VIAL IV SCH (21:25)
[2021-04-16] MEDS: DOCUSATE SODIUM/SENNA 50/8.6MG TAB PO SCH (21:25)
[2021-04-16] MEDS: traZODone HCL 50 MG TAB PO SCH (21:26)
[2021-04-16] MEDS: ceFAZolin 2000MG 2,000 MG/15 ML SYR IV SCH (21:40)
[2021-04-17] MEDS: diphenhydrAMINE Capsule 25 MG CAP PO PRN (00:11)
[2021-04-17] MEDS: KETOROLAC 30 MG/ML VIAL IV SCH ×3 (01:27→14:43)
[2021-04-17] MEDS: HYDROmorphone INJ 0.5 MG/0.5 ML SYR IV PRN (03:46)
[2021-04-17] MEDS: SODIUM CHLORIDE 0.9% 1000ML 1,000 ML IV SCH (04:45)
[2021-04-17] MEDS: ceFAZolin 2000MG 2,000 MG/15 ML SYR IV SCH (05:33)
[2021-04-17] MEDS: POLYETHYLENE (MIRALAX) 17 GM PACK PO SCH ×2 (05:34→19:51)
[2021-04-17 06:29] LABS: Basophils # (auto) 0.01 K/uL (0-0.2); Basophils % (auto) 0.1 %; Eosinophils # (auto) 0.04 K/uL (0-0.5); Eosinophils % (auto) 0.2 %; Hematocrit (blood only) 33.7 % (42-52); Hemoglobin 11.5 g/dL (14.0-18.0); Immature Granulocytes # (auto) 0.08 K/uL (0.00-0.02); Immature Granulocytes % (auto) 0.4 %; Lymphocytes # (auto) 1.31 K/uL (1.2-3.4); Lymphocytes % (auto) 7.2 %; Mean Corpuscular Hemoglobin 30.3 pg (25-34); Mean Corpuscular Hgb Conc 34.1 g/dL (32-36); Mean Corpuscular Volume 88.7 fL (80-100); Mean Platelet Volume 8.8 fL (7.4-10.4); Monocytes # (auto) 2.41 K/uL (0.11-0.59); Monocytes % (auto) 13.3 %; Neutrophils # (auto) 14.23 K/uL (1.4-6.5); Neutrophils % (auto) 78.8 %; Platelet Count 229 K/uL (130-400); RDW Coefficient of Variation 12.7 % (11.5-14.5); RDW Standard Deviation 40.7 fL (36.4-46.3); White Blood Count 18.08 K/uL (4.8-10.8)
[2021-04-17 06:54] LABS: BUN Creatinine Ratio 29.9 (10-20); Calcium 8.1 mg/dl (8.5-10.1); Creatinine Clr Calc Pharmacy 134.8 ml/min; Est GFR (African American) 113.4 ml/min; Est GFR (Non-African American) 97.8 ml/min; Potassium 4.1 mmol/L (3.5-5.1)
[2021-04-17] MEDS: INSULIN ASPART PER UNIT SC SCH ×4 (09:07→21:01)
--- NOTE | 2021-04-17 12:52 | Orthopedic Progress Note ---
Date of Service April 17, 2021 Assessment & Plan (1) Neurogenic claudication due to lumbar spinal stenosis: Plan: This time we will continue physical therapy monitor his BARRY output hopefully discharge home in the next few days. Admission and Anticipated Discharge Date Admission Date: April 15, 2021 Subjective Patient states his back and leg symptoms are markedly improved. He was up and ambulating earlier today. Physical Exam Physical Exam: Patient is in bed. He appears comfortable. Is good strength testing lower extremities. Results & Data ([facility]) Vital Signs (Past 12 Hours) Vital Signs Temp Pulse Resp BP BP Pulse Ox 04/17/21 11:39 37.1 C 117 H 16 104/67 04/17/21 07:50 36.9 C 99 H 16 107/63 04/17/21 04:48 36.9 C 93 H 16 110/68 93
[2021-04-17] MEDS ORDERED: Nursing to Pharmacy Communication SCH (13:30)
--- NOTE | 2021-04-17 14:01 | Hospitalist Progress Note ---
Date of Service April 17, 2021 Assessment & Plan (1) Neurogenic claudication due to lumbar spinal stenosis: Plan: POD#1 multilevel revision decompression and fusion L2-L3, L3-L4, L4-L5, L5-S1 activity and wound care orders as per ortho pain control with bowel regimen PT/OT monitor H/H for acute blood loss anemia and transfuse blood products PRN EBL 1600 cc Acute blood loss anemia secondary to procedure Preop hemoglobin 16.6, hemoglobin 11.5 today EBL 1600 mL; BARRY drain 555 mL this afternoon pt tachycardic and bp on lower side will repeat cbc now given blood loss Leukocytosis likely secondary to Decadron and postop surgical state No signs or symptoms of infection Monitor (2) HTN (hypertension): Plan: BP currently controlled triamterene/HCTZ currently on hold, resume when able (3) Sleep apnea: Plan: CPAP as per home settings (4) Prediabetes: Plan: Hgb A1c 5.8 NovoLog per protocol while hospitalized (5) DVT prophylaxis: Plan: TEDs/SCDs as per spine Ortho Patient was seen and examined in collaboration with, Dr. Richard, please see addendum Thank you for this consultation. We will follow the patient with you during their hospital stay. You can reach a member of the [facility] Hospitalist Team 23/11 via the [facility] role in [place] Text The chart was completed utilizing [employer] Speech voice recognition software. Grammatical errors, random word insertions, pronoun errors, and incomplete sentences are an occasional consequence of this system due to software limitations, ambient noise, and hardware issues. Any formal questions or concerns about the content, text, or information contained within the body of this dictation should be directly addressed to the provider for clarification Admission and Anticipated Discharge Date Admission Date: April 15, 2021 Supervising Physician Co-Signing Physician Notes 55-year-old gentleman admitted for elective surgery for neurogenic claudication due to lumbar spinal stenosis, status post surgery 04/16. EBL 1600 cc during surgery. Continue to monitor hemoglobin daily. Hemoglobin slightly down trended today, patient denies any dizziness/chest pain/palpitation/other symptoms. Upon examination, clean dressing over the back with BARRY drain in situ with serosanguineous collection. My other examination finding reflects as above. I have seen and examined the patient and have discussed the case with the provider above. I agree with the assessment and plan as stated. Subjective Patient was seen and evaluated in 379-2. Follow-up multilevel revision decompression fusion L2-S1 by Dr. Griffin. Currently he feels well. He offers no acute concerns. He had 2 BMs this morning. Denies chest pain, shortness of breath, nausea, vomiting, abdominal pain and is tolerating diet. He has been up and ambulating about the unit multiple times this morning. Review of Systems Review of Systems: All systems reviewed & are unremarkable except as noted in HPI & below Physical Exam Physical Exam: Gen: WD/WN, NAD, A&O x3 HEENT: Normocephalic, atraumatic, conjunctivae moist, sclerae anicteric, mucous membranes moist. Lung: Clear to Auscultation bilaterally, no wheezes/rales/rhonchi Heart: Regular rate, regular rhythm, no murmurs, rubs, or gallops Abdomen: Soft, NT, ND +BS x 4 Extremities: No edema, lumbar dressing CDI, BARRY drain with serosanguineous drainage Skin: Warm, no rash, negative turgor. Results & Data Results & Data ([facility]) Vital Signs (Past 12 Hours) Vital Signs Temp Pulse Resp BP BP Pulse Ox 04/17/21 11:39 37.1 C 117 H 16 104/67 04/17/21 07:50 36.9 C 99 H 16 107/63 04/17/21 04:48 36.9 C 93 H 16 110/68 93 Laboratory Results Short CBC 04/17/21 Range/Units 05:46 WBC 18.08 H (4.8-10.8) K/uL Hgb 11.5 L (14.0-18.0) g/dL Hct 33.7 L (42-52) % Plt Count 229 (130-400) K/uL BMP 04/17/21 05:46 Sodium 136 Potassium 4.1 Chloride 105 Carbon Dioxide 27 BUN 26 H Creatinine 0.87 Glucose 118 H Calcium 8.1 L Medications Administered Current Inpatient Medications Acetaminophen (Acetaminophen 500 Mg Tab) 1,000 mg PO Q8H PRN PRN Reason: MILD Pain Scale 1,2,3 & Pre PT Stop: 05/16/21 15:23 Al Hydrox/Mg Hydrox/Simethicone (Aluminum/Magnesium Susp 30 Ml Udc) 30 ml PO Q6H PRN PRN Reason: Dyspepsia Stop: 05/16/21 15:23 Bisacodyl (Bisacodyl 10 Mg Supp) 10 mg NJ DAILY PRN PRN Reason: Constipation Stop: 05/16/21 15:23 Dextrose (Dextrose 50% 50 Ml Syringe) 25 - 50 ml IV UD PRN; Protocol PRN Reason: Hypoglycemia Protocol Stop: 05/16/21 00:14 Diphenhydramine HCl (Diphenhydramine Capsule 25 Mg Cap) 25 mg PO Q6H PRN PRN Reason: Allergic Rhinitis/Insomnia Stop: 05/16/21 15:23 Last Admin: 04/17/21 00:11 Dose: 25 mg Documented by: Famotidine (Famotidine 20 Mg Tab) 20 mg PO Q12H PRN PRN Reason: Dyspepsia Stop: 05/16/21 15:23 Glucagon (Glucagon For Inj 1 Mg Vial) 1 mg IM UD PRN; Protocol PRN Reason: Hypoglycemia Protocol Stop: 05/16/21 00:14 Glucose (Glucose 40% Gel 15 Gm Tube) 15 - 30 gm PO UD PRN; Protocol PRN Reason: Hypoglycemia Protocol Stop: 05/16/21 00:14 Glucose (Glucose 10 Tabs/Tube) 4 - 8 tabs PO UD PRN; Protocol PRN Reason: Hypoglycemia Protocol Stop: 05/16/21 00:14 Hydromorphone HCl (Hydromorphone Inj 0.5 Mg/0.5 Ml Syr) 0.5 mg IV Q3H PRN PRN Reason: MODERATE Pain (Scale 4,5,6) & Pre PT Stop: 04/30/21 15:23 Last Admin: 04/17/21 03:46 Dose: 0.5 mg Documented by: Hydromorphone HCl (Hydromorphone Inj 1 Mg/Ml Syringe) 1 mg IV Q3H PRN PRN Reason: SEVERE Pain (Scale 7,8,9,10) Stop: 04/30/21 15:23 Hydroxyzine HCl (Hydroxyzine Hcl 25 Mg Tab) 25 mg PO Q8H PRN PRN Reason: Anxiety Stop: 05/16/21 15:23 Promethazine HCl 12.5 mg/ (Sodium Chloride) 50.5 mls @ 202 mls/hr IV Q6H PRN PRN Reason: Nausea &/or Vomiting Stop: 05/16/21 15:23 Acetaminophen (Ofirmev) 1,000 mg in 100 mls @ 400 mls/hr IV Q8H PRN PRN Reason: Pain Rating 1-3 & Pre PT Stop: 04/19/21 15:23 Lorazepam (Ativan) 0.5 mg in 1 mls @ 1 mls/min IV Q8H PRN PRN Reason: Sedation/Anxiety Stop: 05/16/21 15:23 Dexamethasone 8 mg/ Syringe 2 mls @ 1 mls/min IV DAILY MICHELLE Stop: 05/18/21 08:59 Influenza Virus Vaccine Quadrival (Do Not Administer Flu Vaccine) 1 ea N/A PRN PRN PRN Reason: Notification Stop: 05/16/21 15:23 Insulin Aspart (Insulin Aspart Per Unit) 0 units SC ACHS MICHELLE Stop: 05/16/21 16:29 Last Admin: 04/17/21 12:37 Dose: 1 units Documented by: Ketorolac Tromethamine (Ketorolac 30 Mg/Ml Vial) 30 mg IV Q6H MICHELLE Stop: 04/17/21 14:01 Last Admin: 04/17/21 07:40 Dose: 30 mg Documented by: Lorazepam (Lorazepam 0.5 Mg Tab) 0.5 mg PO Q8H PRN PRN Reason: Sedation/Anxiety Stop: 05/16/21 15:23 Magnesium Hydroxide (Magnesium Hydroxide Susp 30 Ml Udc) 30 ml PO Q24H PRN PRN Reason: Constipation Stop: 05/16/21 15:23 Metoclopramide HCl (Metoclopramide Hcl Inj 5 Mg/Ml 2 Ml Vial) 10 mg IV Q6H PRN PRN Reason: Nausea &/or Vomiting Stop: 05/16/21 15:23 Miscellaneous (Carbohydrates For Hypoglycemia ) 15 - 30 gm PO UD PRN PRN Reason: Hypoglycemia Treatment Stop: 05/16/21 00:14 Miscellaneous Information (Pharmacy Glycemic Mgmt Consult) 1 ea N/A UD PRN PRN Reason: Consult Stop: 05/16/21 15:23 Naloxone HCl (Naloxone Hcl 0.4 Mg/1 Ml Vial/Carp) 0.1 mg IV Q5M PRN PRN Reason: Oversedation/Resp depression Stop: 05/16/21 15:23 Ondansetron HCl (Ondansetron Inj 2 Mg/Ml 2 Ml Vial) 4 mg IV Q6H PRN PRN Reason: Nausea &/or Vomiting Stop: 05/16/21 15:23 Ondansetron HCl (Ondansetron 4 Mg Od Tab) 4 mg PO Q6H PRN PRN Reason: Nausea Stop: 05/16/21 15:23 Oxycodone HCl (Oxycodone Hcl Ir 5 Mg Tab (Immediate Release)) 5 - 10 mg PO Q4H PRN PRN Reason: Pain & Pre PT Stop: 04/30/21 15:23 Pneumococcal Polyvalent Vaccine (Do Not Administer Pneumococcal Vaccine) 1 ea N/A PRN PRN PRN Reason: Notification Stop: 05/16/21 15:23 Senna/Docusate Sodium (Docusate Sodium/Senna 50/8.6mg Tab) [address] [facility] Stop: 05/16/21 20:59 Last Admin: 04/16/21 21:25 Dose: 2 tab Documented by: Sodium Biphosphate/Sodium Phosphate (Sod Phosphate/Sod Biphosphate Enema 132 Ml Btl) 132 ml NJ ONE PRN PRN Reason: Constipation Stop: 05/16/21 15:23 Tramadol HCl (Tramadol Hcl 50 Mg Tablet) 50 - 100 mg PO Q4H PRN PRN Reason: Moderate-Severe pain & Pre PT Stop: 05/16/21 15:23 Trazodone HCl (Trazodone Hcl 50 Mg Tab) [address] [facility] Stop: 05/15/21 20:59 Last Admin: 04/16/21 21:26 Dose: 50 mg Documented by:
[2021-04-17 14:11] LABS: Hematocrit (blood only) 32.2 % (42-52); Hemoglobin 11.1 g/dL (14.0-18.0); Mean Corpuscular Hemoglobin 30.3 pg (25-34); Mean Corpuscular Hgb Conc 34.5 g/dL (32-36); Mean Platelet Volume 8.4 fL (7.4-10.4); Platelet Count 202 K/uL (130-400); RDW Coefficient of Variation 12.6 % (11.5-14.5); RDW Standard Deviation 40.6 fL (36.4-46.3); Red Blood Count 3.66 M/uL (4.7-6.1); White Blood Count 15.79 K/uL (4.8-10.8)
[2021-04-17] MEDS ORDERED: bisacodyL 10 MG SUPP PR PRN (14:26)
[2021-04-17] MEDS: ONDANSETRON 4 MG OD TAB PO PRN (16:28)
[2021-04-17] MEDS: traMADol HCL 50 MG TABLET PO PRN ×2 (16:28→21:11)
[2021-04-17] MEDS: DOCUSATE SODIUM/SENNA 50/8.6MG TAB PO SCH (21:02)
[2021-04-17] MEDS: traZODone HCL 50 MG TAB PO SCH (21:03)
[2021-04-18] MEDS: traMADol HCL 50 MG TABLET PO PRN ×2 (01:47→09:19)
[2021-04-18] MEDS: diphenhydrAMINE Capsule 25 MG CAP PO PRN (01:48)
[2021-04-18] MEDS: ONDANSETRON 4 MG OD TAB PO PRN (03:48)
--- NOTE | 2021-04-18 08:45 | Discharge Summary ---
Date of Service April 18, 2021 Admission HPI Per Admitting Provider This is a 55-year-old male who presents with marked clinical status over the past several weeks. This is his third emergency room visit. He is noted a steady decline in ability to ambulate with pain rating in the bilateral buttocks posterior anterior thighs below his knees. He is unable to stand for any length of time or ambulate. He does have a history of previous multilevel lumbar decompression without fusion. Principal Diagnosis Lumbar spinal stenosis with hernia nucleus pulposus and neurogenic claudication Discharge Data Allergies Allergy/AdvReac Type Severity Reaction Status Date / Time No Known Allergies Allergy Verified 04/15/21 16:52 Consultations 04/15/21 14:16 ED Decision to Admit Stat 04/15/21 18:56 Consult Internal Medicine Routine Procedures Performed Operation Date: 04/16/21 09:40 Actual Procedures p L2-S1 Lumbar Decompression and Fusion, Interbody Fusion L2-S1, with Application of Bone Morphogenetic Protein and IFactor Bone Graft and Spinal Cord Monitoring(Not Applicable) - Juan Griffin DO Ordered Studies 04/16/21 ND lumbar spine 2-3V Routine Hospital Course (1) Neurogenic claudication due to lumbar spinal stenosis: Patient was admitted with severe back and leg pain with weakness. He underwent surgery the following day secondary to advanced progressive neurologic decline. He tolerated procedure well was taken to orthopedic floor postope rative. Postop day #1 he was up and ambulating marked improvement regarding his pain and leg weakness. He progressed to postop day #2. Pain was controlled strength intact subsequently discharged home with his drain. He will manage his drain at home and follow-up with us on Wednesday for dressing change and drain removal. Total Time Total Time Spent Total Time Spent (In Minutes): 20 minutes Discharge Plan Discharge Items Patient Disposition: Home - Self-Care Reason For Visit: LEG PAIN AND WEAKNESS Discharge Diagnosis: Lumbar disc herniation with spinal stenosis Condition on Discharge: Good Activity: As commented below Non-emergency contact: Primary Care Provider Call non-emergency contact if: you have any medication questions Follow-up/Referrals: Octaviano Malone PA-C [Primary Care Provider] - Diet: Regular Addtl Attending Provider Instructions: ACTIVITY RECOMMENDATIONS: SELF CARE INSTRUCTIONS AFTER THORACIC/LUMBAR FUSIONS 1. You may walk to your tolerance. It is good exercise for your legs and back. Expect some back and intermittent leg aches and pains. 2. You may perform "counter-top" level activities (make a sandwich, jessika with a project, etc.). 3. No bending or lifting of more than 10 pounds or back twisting of any nature (roll like a log when turning in bed). 4. You may ride in a car for 20-30 minutes at a time. No driving until after your first visit with your doctor. 5. Frequent changes of position and restricting sitting to 30 minutes at a time will help limit the amount of back spasms and stiffness you may experience. 6. You may discontinue the use of ambulatory aids (cane, crutches, etc.) once your strength and confidence allow. 7. You may golf course superintendent the shower and let water strike your incision when you arrive home at least once daily. Do not take a tub bath, sit in a hot tub or go into a swimming pool until after your first recheck in the office. SPECIAL CARE INSTRUCTIONS: VERY IMPORTANT TO READ AND REVIEW A. Your surgical incision has been closed with a cosmetic suture under the skin that will dissolve in about 6 weeks. In 14 days, you can use a pair of clean scissors and cut the suture that is left outside of the skin at the ends of your incision. 1. The small skin tapes can be removed 7 days after surgery if they have not fallen off by that point. 2. You may keep the wound open to air as much as possible to promote healing after post-op day number 5 unless told otherwise by your doctor. 3. If you think the wound looks like it is becoming infected (redness or worsening drainage) and/or you are experiencing fever, chill or worsening back pain and muscle spasms, contact the office so that we may evaluate you as soon as possible. B. Complications are uncommon, but please contact us if you have any signs or symptoms of: 1. wound infection (fever higher than 102.5 degrees F, redness, separation of wound, drainage, or increasing pain from the incision) 2. blood clots in legs (pain, swelling, redness and warmth in legs) 3. urinary tract infection (fever higher than 102.5 degrees F, burning upon urination or increased frequency of urination) 4. nerve problems (inability to walk on your toes or heels, numbness, loss of bowel or bladder control) 5. any other symptoms that concern you C. Please call the office at if you have any concerns or questions about your operation or recovery. D. No smoking! Smoking drastically decreases the chance of a solid fusion. E. Do not take any anti-inflammatory medications (Indocin, Advil, Motrin, Aspirin, Naprosyn, etc.) as these may inhibit the chance of a solid fusion. Tylenol is okay to take for pain. MANAGING PAIN AFTER SPINAL SURGERY 1. Narcotic medication is intended for short-term use and will be provided for surgical pain. Surgical pain usually lasts for a period of 4-6 weeks. Narcotic medication includes Percocet, Vicodin, Darvocet, Tylenol #3 or Lortab. 2. Longer-term pain is more appropriately treated with non-narcotic medication such as Tylenol ES. 3. Muscle spasm is not appropriately treated with narcotics. Muscle relaxers such as Soma, Flexeril or Skelaxin can be used along with Tylenol ES. 4. Remember that we all live with some "aches and pains". This is not unusual or uncommon after an injury or as we get older. a. Back pain is expected and may include muscle spasms for 4 to 6 weeks after surgery. The pain should gradually improve. If the pain worsens for no apparent reason, please contact the office. b. Intermittent leg pain may also be experienced and should not be concerned about unless it worsens for no apparent reason. If so, please contact the office. 5. We will provide appropriate medication within the normal guidelines of their prescribed use. We will also be very cautious and aware of potential abuse and extended duration of patients' medication needs. a. Pain medications are for your comfort and to assist with sleep and rest so that the tissue can heal. They are not provided in order to return to normal activity and should not be used through the day. To do so or worsening pain at night can result from ongoing tissue damage and development of tolerance to the prescribed medicine. 6. Please allow 2-3 days to process refills. Prescriptions will not be mailed but must be picked up at the office. FOLLOW UP VISIT: Keep your scheduled follow-up appointment. Any questions, please call the office at . Pending Studies at Discharge: No Stand-Alone Forms: [facility], Smoking Cessation Medications and DC Order Prescriptions: New tramadol 50 mg tablet 50 mg PO Q6H PRN (Reason: pain, moderate) Qty: 30 RF: 0 oxycodone 5 mg tablet 5 mg PO Q6H PRN (Reason: pain, severe) Qty: 30 RF: 0 Continued trazodone 50 mg Tablet 50 mg PO HS RF: 0 acetaminophen [Tylenol Extra Strength] 500 mg Tablet 1,000 mg PO DAILY PRN (Reason: Pain) RF: 0 fluticasone propionate [Flonase Allergy Relief] 50 mcg/actuation Fitzpatrick,Suspension 2 spray INTRANASAL DAILY PRN (Reason: Allergy Symptoms) RF: 0 meclizine 25 mg Tablet 25 mg PO DAILY PRN (Reason: Dizziness) RF: 0 cyclobenzaprine 10 mg tablet 10 mg PO BID RF: 0 oxycodone [Roxicodone] 5 mg tablet 5 mg PO Q8H PRN (Reason: pain) Qty: 21 RF: 0 methylprednisolone 4 mg tablets,dose pack See Rx Instructions .ROUTE .COMPLEX Qty: 21 RF: 0 triamterene-hydrochlorothiazid 37.5-25 mg capsule 1 cap PO DAILY RF: 0 Discharge Orders: Discharge Order (Routine); Ordered 04/18/21 Ordered By: Juan Griffin Admission Data Admit Date/Time: 04/15/21 14:29 Attending Provider: Juan Griffin Admit Provider: Juan Griffin Primary Care Provider: Octaviano Malone Other Providers: Chelle Richard ; Juan Griffin ; Shavonne Velasco ; Francie Salinas
[2021-04-18] MEDS ORDERED: dexAMETHasone 8 MG in SYRINGE 0 ML IV SCH (09:00)
[2021-04-18] MEDS: INSULIN ASPART PER UNIT SC SCH ×2 (09:22→12:34)
--- NOTE | 2021-04-18 10:04 | Hospitalist Progress Note ---
Date of Service April 18, 2021 Assessment & Plan (1) Neurogenic claudication due to lumbar spinal stenosis: Plan: POD#2 multilevel revision decompression and fusion L2-L3, L3-L4, L4-L5, L5-S1 activity and wound care orders as per ortho pain control with bowel regimen PT/OT monitor H/H for acute blood loss anemia and transfuse blood products PRN EBL 1600 cc Patient to be discharged home today Acute blood loss anemia secondary to procedure Preop hemoglobin 16.6, hemoglobin 11.1 yesterday afternoon EBL 1600 mL; BARRY drains removed today Leukocytosis likely secondary to Decadron and postop surgical state No signs or symptoms of infection Monitor (2) HTN (hypertension): Plan: BP currently controlled Resume triamterene hydrochlorothiazide at discharge (3) Sleep apnea: Plan: CPAP as per home settings (4) Prediabetes: Plan: Hgb A1c 5.8 NovoLog per protocol while hospitalized (5) DVT prophylaxis: Plan: TEDs/SCDs as per spine Ortho Patient was seen and examined in collaboration with, Dr. Richard, please see addendum Patient to be discharged home today. Thank you for this consultation. We will follow the patient with you during their hospital stay. You can reach a member of the [facility] Hospitalist Team 23/11 via the [facility] role in [place] [facility] The chart was completed utilizing [employer] Speech voice recognition software. Grammatical errors, random word insertions, pronoun errors, and incomplete sentences are an occasional consequence of this system due to software limitations, ambient noise, and hardware issues. Any formal questions or concerns about the content, text, or information contained within the body of this dictation should be directly addressed to the provider for clarification Admission and Anticipated Discharge Date Admission Date: April 15, 2021 Supervising Physician Co-Signing Physician Notes 55-year-old gentleman admitted for elective surgery for neurogenic claudication due to lumbar spinal stenosis, status post surgery 04/16. EBL 1600 cc during surgery. Hemoglobin stayed stable above 11 while inpatient. Patient denies any dizziness/chest pain/palpitation/other symptoms. Upon examination, clean dressing over the back with BARRY drain in situ with serosanguineous collection. My other examination finding reflects as above. I have seen and examined the patient and have discussed the case with the provider above. I agree with the assessment and plan as stated. Subjective Patient was seen and evaluated in 379-2. Follow-up multilevel revision decompression fusion L2-S1 by Dr. Griffin. He is hoping to be discharged home today. He did not sleep well last evening and feels he would sleep better at home. He complains of minimal incisional tenderness. Denies any radicular symptoms. Last bowel movement yesterday. Denies fever, chills, sweats, chest pain, shortness breath, nausea, vomiting, abdominal pain. He is tolerating diet. Review of Systems Review of Systems: All systems reviewed & are unremarkable except as noted in HPI & below Physical Exam Physical Exam: Gen: WD/WN, NAD, A&O x3 HEENT: Normocephalic, atraumatic, conjunctivae moist, sclerae anicteric, mucous membranes moist. Lung: Clear to Auscultation bilaterally, no wheezes/rales/rhonchi Heart: Regular rate, regular rhythm, no murmurs, rubs, or gallops Abdomen: Soft, NT, ND +BS x 4 Extremities: No edema, lumbar dressing CDI, BARRY drain with serosanguineous drainage Skin: Warm, no rash, negative turgor. Results & Data Results & Data ([facility]) Vital Signs (Past 12 Hours) Vital Signs Temp Pulse Resp BP Pulse Ox 04/18/21 07:02 36.6 C 88 16 122/75 95 Laboratory Results Short CBC 04/17/21 Range/Units 14:02 WBC 15.79 H (4.8-10.8) K/uL Hgb 11.1 L (14.0-18.0) g/dL Hct 32.2 L (42-52) % Plt Count 202 (130-400) K/uL Medications Administered Current Inpatient Medications Acetaminophen (Acetaminophen 500 Mg Tab) 1,000 mg PO Q8H PRN PRN Reason: MILD Pain Scale 1,2,3 & Pre PT Stop: 05/16/21 15:23 Al Hydrox/Mg Hydrox/Simethicone (Aluminum/Magnesium Susp 30 Ml Udc) 30 ml PO Q6H PRN PRN Reason: Dyspepsia Stop: 05/16/21 15:23 Bisacodyl (Bisacodyl 10 Mg Supp) 10 mg IL DAILY PRN PRN Reason: Constipation Stop: 05/16/21 15:23 Dextrose (Dextrose 50% 50 Ml Syringe) 25 - 50 ml IV UD PRN; Protocol PRN Reason: Hypoglycemia Protocol Stop: 05/16/21 00:14 Diphenhydramine HCl (Diphenhydramine Capsule 25 Mg Cap) 25 mg PO Q6H PRN PRN Reason: Allergic Rhinitis/Insomnia Stop: 05/16/21 15:23 Last Admin: 04/18/21 01:48 Dose: 25 mg Documented by: Famotidine (Famotidine 20 Mg Tab) 20 mg PO Q12H PRN PRN Reason: Dyspepsia Stop: 05/16/21 15:23 Glucagon (Glucagon For Inj 1 Mg Vial) 1 mg IM UD PRN; Protocol PRN Reason: Hypoglycemia Protocol Stop: 05/16/21 00:14 Glucose (Glucose 40% Gel 15 Gm Tube) 15 - 30 gm PO UD PRN; Protocol PRN Reason: Hypoglycemia Protocol Stop: 05/16/21 00:14 Glucose (Glucose 10 Tabs/Tube) 4 - 8 tabs PO UD PRN; Protocol PRN Reason: Hypoglycemia Protocol Stop: 05/16/21 00:14 Hydromorphone HCl (Hydromorphone Inj 0.5 Mg/0.5 Ml Syr) 0.5 mg IV Q3H PRN PRN Reason: MODERATE Pain (Scale 4,5,6) & Pre PT Stop: 04/30/21 15:23 Last Admin: 04/17/21 03:46 Dose: 0.5 mg Documented by: Hydromorphone HCl (Hydromorphone Inj 1 Mg/Ml Syringe) 1 mg IV Q3H PRN PRN Reason: SEVERE Pain (Scale 7,8,9,10) Stop: 04/30/21 15:23 Hydroxyzine HCl (Hydroxyzine Hcl 25 Mg Tab) 25 mg PO Q8H PRN PRN Reason: Anxiety Stop: 05/16/21 15:23 Promethazine HCl 12.5 mg/ (Sodium Chloride) 50.5 mls @ 202 mls/hr IV Q6H PRN PRN Reason: Nausea &/or Vomiting Stop: 05/16/21 15:23 Acetaminophen (Ofirmev) 1,000 mg in 100 mls @ 400 mls/hr IV Q8H PRN PRN Reason: Pain Rating 1-3 & Pre PT Stop: 04/19/21 15:23 Lorazepam (Ativan) 0.5 mg in 1 mls @ 1 mls/min IV Q8H PRN PRN Reason: Sedation/Anxiety Stop: 05/16/21 15:23 Dexamethasone 8 mg/ Syringe 2 mls @ 1 mls/min IV DAILY [facility] Stop: 05/18/21 08:59 Last Admin: 04/18/21 09:22 Dose: 1 mls/min Documented by: Influenza Virus Vaccine Quadrival (Do Not Administer Flu Vaccine) 1 ea N/A PRN PRN PRN Reason: Notification Stop: 05/16/21 15:23 Insulin Aspart (Insulin Aspart Per Unit) 0 units SC ACHS [facility] Stop: 05/16/21 16:29 Last Admin: 04/18/21 09:22 Dose: Not Given Documented by: Lorazepam (Lorazepam 0.5 Mg Tab) 0.5 mg PO Q8H PRN PRN Reason: Sedation/Anxiety Stop: 05/16/21 15:23 Last Admin: 04/18/21 05:32 Dose: 0.5 mg Documented by: Magnesium Hydroxide (Magnesium Hydroxide Susp 30 Ml Udc) 30 ml PO Q24H PRN PRN Reason: Constipation Stop: 05/16/21 15:23 Metoclopramide HCl (Metoclopramide Hcl Inj 5 Mg/Ml 2 Ml Vial) 10 mg IV Q6H PRN PRN Reason: Nausea &/or Vomiting Stop: 05/16/21 15:23 Last Admin: 04/18/21 05:07 Dose: 10 mg Documented by: Miscellaneous (Carbohydrates For Hypoglycemia ) 15 - 30 gm PO UD PRN PRN Reason: Hypoglycemia Treatment Stop: 05/16/21 00:14 Miscellaneous Information (Pharmacy Glycemic Mgmt Consult) 1 ea N/A UD PRN PRN Reason: Consult Stop: 05/16/21 15:23 Naloxone HCl (Naloxone Hcl 0.4 Mg/1 Ml Vial/Carp) 0.1 mg IV Q5M PRN PRN Reason: Oversedation/Resp depression Stop: 05/16/21 15:23 Ondansetron HCl (Ondansetron Inj 2 Mg/Ml 2 Ml Vial) 4 mg IV Q6H PRN PRN Reason: Nausea &/or Vomiting Stop: 05/16/21 15:23 Ondansetron HCl (Ondansetron 4 Mg Od Tab) 4 mg PO Q6H PRN PRN Reason: Nausea Stop: 05/16/21 15:23 Last Admin: 04/18/21 03:48 Dose: 4 mg Documented by: Oxycodone HCl (Oxycodone Hcl Ir 5 Mg Tab (Immediate Release)) 5 - 10 mg PO Q4H PRN PRN Reason: Pain & Pre PT Stop: 04/30/21 15:23 Pneumococcal Polyvalent Vaccine (Do Not Administer Pneumococcal Vaccine) 1 ea N/A PRN PRN PRN Reason: Notification Stop: 05/16/21 15:23 Senna/Docusate Sodium (Docusate Sodium/Senna 50/8.6mg Tab) 2 tab PO [facility] Stop: 05/16/21 20:59 Last Admin: 04/17/21 21:02 Dose: 2 tab Documented by: Sodium Biphosphate/Sodium Phosphate (Sod Phosphate/Sod Biphosphate Enema 132 Ml Btl) 132 ml IL ONE PRN PRN Reason: Constipation Stop: 05/16/21 15:23 Tramadol HCl (Tramadol Hcl 50 Mg Tablet) 50 - 100 mg PO Q4H PRN PRN Reason: Moderate-Severe pain & Pre PT Stop: 05/16/21 15:23 Last Admin: 04/18/21 09:19 Dose: 100 mg Documented by: Trazodone HCl (Trazodone Hcl 50 Mg Tab) 50 mg PO [facility] Stop: 05/15/21 20:59 Last Admin: 04/17/21 21:03 Dose: 50 mg Documented by:
== END 2021-04-18 14:04 | disposition home or self-care (01) | DRG 454 ==
LOC: ED 11:19 → EDINP 14:29 → 3N 20:45